=== PATIENT | female | born 1970 | race Caucasian/White ===

== ENCOUNTER → 2018-01-06 | Outpatient (CLI) | payer OTHER ==
--- NOTE | 2018-01-06 09:53 | RAD ---
Pelvic ultrasound, 01/06/2018: HISTORY: Menorrhagia Transabdominal and transvaginal scans were obtained. The uterus measures 10.7 x 7.3 x 6.6 cm. The central uterine echo complex is thickened and heterogeneous as best seen on the transvaginal views. It measures at least 2.2 cm in AP dimension. The ovaries were not visualized, presumably due to their positions and overlying bowel. No adnexal mass is seen. No free fluid is evident in the pelvis. IMPRESSION: 1. Moderate nonspecific thickening of the central uterine echo complex with diagnostic considerations including endometrial hyperplasia, endometrial polyp or endometrial malignancy. 2. Nonvisualization of the ovaries. Electronically signed by: Donis Barahona MD (01/06/2018 9:49 AM) [facility]
== END | disposition home or self-care (01) ==
LOC: US 07:52
PROVIDERS: ATTEND Family Medicine
DX: N92.0 Excessive and frequent menstruation with regular cycle (principal)
CPT/HCPCS: 76830; 76856